=== PATIENT | male | born 1970 | race African-American/Black ===

== ENCOUNTER 2018-03-17 10:36 | Emergency (ER) | payer OTHER ==
[~2018-03-17] VITALS: Ht 177.8 cm; Wt 104.0 kg
[2018-03-17] MEDS ORDERED: NAPROSYN500 MG PO (13:15)
[2018-03-17] MEDS ORDERED: FLEXERIL10 MG PO (13:15)
[2018-03-17 13:22] VITALS: BP 125/70
== END 2018-03-17 13:23 | disposition home or self-care (01) ==
LOC: EME 10:36
DX: M54.5 Low back pain (principal); F17.200 Nicotine dependence, unspecified, uncomplicated
CPT/HCPCS: 72100; 99281; 99284

== ENCOUNTER 2018-05-04 06:35 | Emergency (ER) | payer OTHER ==
[~2018-05-04] VITALS: Ht 177.8 cm; Wt 106.1 kg
[~2018-05-04 06:35] MED LIST: FLEXERIL10 MG PO; NAPROSYN500 MG PO
[2018-05-04 07:35] LABS: HEMATOCRIT 40.1 % (38.0-50.0); HEMOGLOBIN 13.7 G/DL (12.5-16.6); MCH 28.5 PG (29.0-34.0); MCHC 34.2 G/DL (30.0-36.0); MCV 83.5 FL (86-99); RBC DIS.WIDTH-CV 13.4 % (11.8-14.6); RBC DIS.WIDTH-SD 41.2 % (39-53); WHITE BLOOD COUNT 7.1 K/uL (4.1-10.2)
[2018-05-04 08:01] LABS: CHLORIDE 107 MEQ/L (99-109); CREATININE 1.1 MG/DL (0.6-1.3); GFR ESTIMATE (CALCULATED) > 59 mL/min/ (58.99-99999); GLUCOSE 122 mg/dL (70-99); POTASSIUM 3.6 MEQ/L (3.7-5.4); SODIUM 138 MEQ/L (136-147); UREA NITROGEN (BUN) 22 mg/dL (9-23)
[2018-05-04 08:02] LABS: TROP-I INTERPRETATION NEGATIVE; TROPONIN-I < 0.01 ng/mL (0.0-0.30)
[2018-05-04 08:25] LABS: PLAT.SUFFICIENCY ADEQUATE; PLATELET COUNT 218 K/uL (156-360)
[2018-05-04 09:25] VITALS: BP 115/83
== END 2018-05-04 09:25 | disposition home or self-care (01) ==
LOC: EME 06:35
PROVIDERS: Nurse Practitioner Family
DX: R07.89 Other chest pain (principal); R94.31 Abnormal electrocardiogram [ECG] [EKG]; F17.200 Nicotine dependence, unspecified, uncomplicated
CPT/HCPCS: 71046; 80048; 84484; 85027; 93005; 99281; 99284; J1885